=== PATIENT | male | born 1985 | race Two or more races ===

== ENCOUNTER → 2018-07-19 | Outpatient (CLI) | payer OTHER ==
--- NOTE | 2018-07-19 10:30 | REP ---
CT chest without contrast: History: Left anterior pleuritic chest pain. No comparison imaging. Findings: Digital preliminary spool winder radiograph is unremarkable. On axial CT images of the lung coffman are clear. There is no evidence of infiltrate, mass, nodule or atelectasis. No significant fibrosis is seen. There is no evidence of pleural or pericardial effusion. No hilar or mediastinal mass or adenopathy is observed. The visualized upper abdominal structures are unremarkable. There is a small accessory splenule adjacent to the pancreatic tail. Bone window settings demonstrate a healing slightly displaced left lateral fifth rib fracture. In addition, there are more recent nondisplaced fractures involving the right anterior fourth and fifth ribs. No other acute bony abnormality is seen. Impression: Bilateral recent rib fractures, healing on the left and more recent on the right. Otherwise normal CT study of the chest. Electronically Signed by Milton Brar MD 07/19/2018 03:54 P
== END ==
LOC: M RAD 06:55
PROVIDERS: ATTEND General Practice
DX: R07.9 Chest pain, unspecified (principal); Z87.81 Personal history of (healed) traumatic fracture

== ENCOUNTER 2019-07-05 15:09 | Emergency (ER) | payer OTHER ==
[~2019-07-05] VITALS: Ht 180.3 cm; Wt 74.1 kg
[2019-07-05 15:10] VITALS: BP 162/98
[2019-07-05] MEDS ORDERED: IBUP-1022 PO (15:18)
[2019-07-05] MEDS ORDERED: LIDOCAINE 1% MDV 20ML VIAL SC ONE (16:15)
[2019-07-05] MEDS ORDERED: LIDO5DIS41 TOP (16:55)
[2019-07-05] MEDS ORDERED: CYCL10TA PO (16:55)
== END 2019-07-05 17:11 | disposition home or self-care (01) ==
LOC: M ED 15:09
DX: S46.819A Strain of other muscles, fascia and tendons at shoulder and upper arm level, unspecified arm, initial encounter (principal); Y92.009 Unspecified place in unspecified non-institutional (private) residence as the place of occurrence of the external cause; Y93.9 Activity, unspecified; X50.0XXA Overexertion from strenuous movement or load, initial encounter; F17.200 Nicotine dependence, unspecified, uncomplicated